=== PATIENT | male | born 1940 | race Caucasian/White ===

== ENCOUNTER → 2022-02-10 | Outpatient (CLI) | payer MEDICARE, BC ==
[2022-02-10 12:11] LABS: ALBUMIN 3.7 GM/DL (3.2-5.2); BLOOD UREA NITROGEN 15 MG/DL (7-18); CALCIUM LEVEL 8.9 MG/DL (8.8-10.2); CARBON DIOXIDE LEVEL 32 MEQ/L (21-32); CHLORIDE LEVEL 102 MEQ/L (98-107); CREATININE FOR GFR 1.06 MG/DL (0.70-1.30); GLOMERULAR FILTRATION RATE > 60.0 (>35); GLUCOSE, FASTING 122 MG/DL (70-100); PHOSPHORUS LEVEL 3.4 MG/DL (2.5-4.9); POTASSIUM SERUM 4.6 MEQ/L (3.5-5.1); SODIUM LEVEL 138 MEQ/L (136-145)
== END ==
LOC: M LAB 09:28
PROVIDERS: ATTEND Internal Medicine
DX: J01.10 Acute frontal sinusitis, unspecified (principal); R05.9 Cough, unspecified; Z20.828 Contact with and (suspected) exposure to other viral communicable diseases

== ENCOUNTER 2023-08-26 14:00 | Emergency (ER) | payer MEDICARE, BC, OTHER ==
[2023-08-26 15:20] LABS: BASO % 0.3 % (0.0-1.0); EOS # 0.1 10^3/uL (0.0-0.5); EOS % 1.3 % (0.0-3.0); HEMATOCRIT 45.7 % (42.0-52.0); HEMOGLOBIN 15.5 g/dl (13.5-17.5); LYMPH # 1.4 10^3/uL (1.5-5.0); LYMPH % 16.4 % (24.0-44.0); MEAN CORPUSCULAR HEMOGLOBIN 32.1 pg (27.0-33.0); MEAN CORPUSCULAR HGB CONC 33.9 g/dl (32.0-36.5); MEAN CORPUSCULAR VOLUME 94.6 fl (80.0-96.0); MONO # 0.8 10^3/uL (0.0-0.8); MONO % 9.4 % (2.0-8.0); NEUTROPHILS # 6.2 10^3/uL (1.5-8.5); NEUTROPHILS % 72.1 % (36.0-66.0); PLATELET COUNT, AUTOMATED 195 10^3/uL (150-450); RED BLOOD COUNT 4.83 10^6/uL (4.30-6.10); WHITE BLOOD COUNT 8.6 10^3/uL (4.0-10.0)
[2023-08-26 15:29] LABS: LIPASE 40 U/L (12-53)
[2023-08-26 15:32] LABS: ALBUMIN 4.2 G/DL (3.2-5.2); ALKALINE PHOSPHATASE 74 U/L (46-116); ALT/SGPT 28 U/L (7.0-40); AST/SGOT 22 U/L (<34); BILIRUBIN,DIRECT 0.2 MG/DL (<0.4); BILIRUBIN,TOTAL 0.5 MG/DL (0.3-1.2); BLOOD UREA NITROGEN 22 MG/DL (9-23); CALCIUM LEVEL 9.9 MG/DL (8.3-10.6); CARBON DIOXIDE LEVEL 26 MMOL/L (20-31); CHLORIDE LEVEL 105 MMOL/L (98-107); CREATININE FOR GFR 0.86 MG/DL (0.70-1.30); GLOMERULAR FILTRATION RATE > 60.0 (>35); GLUCOSE, FASTING 126 MG/DL (74-106); POTASSIUM SERUM 4.5 MMOL/L (3.5-5.1); SODIUM LEVEL 139 MMOL/L (136-145); TOTAL PROTEIN 6.9 G/DL (5.7-8.2)
[2023-08-26] MEDS ORDERED: HYDR12.55 PO (17:45)
[2023-08-26] MEDS ORDERED: NEBI5TAB PO (17:45)
[2023-08-26] MEDS ORDERED: ASPI81CH48 PO (17:45)
[2023-08-26] MEDS ORDERED: LOSA50TA28 PO (17:45)
[2023-08-26] MEDS ORDERED: CLOP75TA2 PO (17:45)
[2023-08-26] MEDS ORDERED: GABA-282 PO (17:45)
[2023-08-26] MEDS ORDERED: TAMS1CAP17 PO (17:45)
[2023-08-26] MEDS ORDERED: AMLO2.5T3 PO (17:45)
[2023-08-26] MEDS ORDERED: ATOR80TA59 PO (17:45)
[2023-08-26] MEDS ORDERED: METF500T13 PO (17:45)
[2023-08-26] MEDS ORDERED: ISOVUE-370 76% 100ML VIAL As Ordered ONE (18:26)
[2023-08-26 19:28] VITALS: BP 181/89; TEMP 97.3; O2SAT 97
== END 2023-08-26 19:36 | disposition home or self-care (01) ==
LOC: M ED 14:00
DX: R10.2 Pelvic and perineal pain (principal); E11.9 Type 2 diabetes mellitus without complications; Z86.79 Personal history of other diseases of the circulatory system; Z79.4 Long term (current) use of insulin; Z87.891 Personal history of nicotine dependence; Z91.048 Other nonmedicinal substance allergy status; Z79.811 Long term (current) use of aromatase inhibitors; Z79.82 Long term (current) use of aspirin; Z79.891 Long term (current) use of opiate analgesic; Z79.899 Other long term (current) drug therapy
CPT/HCPCS: 36415; 74177; 76857; 80048; 80076; 83690; 85025; 99284; Q9967